=== PATIENT | male | born 1995 | race African-American/Black ===

== ENCOUNTER 2020-05-03 19:51 | Emergency (ER) | payer OTHER ==
[~2020-05-03] VITALS: Ht 182.9 cm; Wt 74.8 kg
[2020-05-03 19:57] VITALS: BP 126/62
== END 2020-05-03 20:40 | disposition home or self-care (01) ==
LOC: ER 19:51
PROVIDERS: Emergency Medicine
DX: A64 Unspecified sexually transmitted disease (principal); F17.210 Nicotine dependence, cigarettes, uncomplicated